=== PATIENT | female | born 1955 | race Asian ===

== ENCOUNTER 2023-06-30 11:39 | Outpatient (REF) | payer MEDICARE, SELFPAY ==
[2023-06-30 12:35] LABS: Microalbum Creatinine Ratio Ur 259.1 mg/g (0.0-29.9); Microalbumin Urine Random 51.2 mg/dL (<=30.0)
== END 2023-06-30 11:40 | disposition home or self-care (01) ==
LOC: LAB 11:39
PROVIDERS: PCP Nurse Practitioner Primary Care; Visit Provider Nurse Practitioner Primary Care
DX: E11.9 Type 2 diabetes mellitus without complications (principal)
CPT/HCPCS: 82043; 82570